=== PATIENT | female | born 1960 | race Caucasian/White ===

== ENCOUNTER 2017-04-09 12:51 | Outpatient (CLI) | payer BC ==
[~2017-04-09] VITALS: Ht 175.3 cm; Wt 153.9 kg
[~2017-04-09 12:51] MED LIST: ATEN50TA PO; BUPR-42 PO; CITA20TA4 PO; ESTR1TAB13 PO; HYDR-623 PO; HYDR25TA4 PO; MULT-974 PO; OMEP20TA2 PO; TURM500C PO
[2017-04-09] MEDS ORDERED: CITA40TA19 PO (13:09)
[2017-04-09] MEDS ORDERED: ESTR1TAB24 PO (13:09)
[2017-04-09] MEDS ORDERED: NORE5TAB12 PO (13:09)
[2017-04-09] MEDS ORDERED: ZOLP5TAB PO (13:09)
[2017-04-09] MEDS ORDERED: CYCL10TA9 PO (13:09)
[2017-04-09 13:13] VITALS: BP 141/81
[2017-04-14] MEDS ORDERED: OXYC-202 PO (11:23)
== END 2017-04-09 13:37 | disposition home or self-care (01) ==
LOC: PREOP 12:51
PROVIDERS: ATTEND Obstetrics & Gynecology
DX: Z01.818 Encounter for other preprocedural examination (principal); Z11.2 Encounter for screening for other bacterial diseases; N95.0 Postmenopausal bleeding
CPT/HCPCS: 87081

== ENCOUNTER 2017-04-14 10:25 | Day surgery (SDC) | payer BC ==
[~2017-04-14] VITALS: Ht 175.3 cm; Wt 153.9 kg
[2017-04-14 10:25] VITALS: BP 122/76
[~2017-04-14 10:25] MED LIST changes: +CITA40TA19 PO; +CYCL10TA9 PO; +ESTR1TAB24 PO; +NORE5TAB12 PO; +ZOLP5TAB PO
[2017-04-14] MEDS ORDERED: proPOfol 200 MG/20 ML (DIPRIVAN) VIAL IV ONE (10:43)
[2017-04-14] MEDS ORDERED: fentaNYL INJECTION 100 MCG/2 ML AMP ONE (10:43)
[2017-04-14] MEDS ORDERED: MIDAZOLAM 2 MG/2 ML (VERSED) VIAL ONE (10:43)
[2017-04-14] MEDS ORDERED: LIDOCAINE PF 2% 10 ML (XYLOCAINE) AMP ONE (10:43)
[2017-04-14] MEDS ORDERED: ONDANSETRON 4 MG/2 ML (SDV) Z0FRAN ONE (10:43)
[2017-04-14] MEDS ORDERED: LACTATED RINGERS 1,000 ML IV ONE (10:43)
[2017-04-14] MEDS ORDERED: SEVOFLURANE (ULTANE) 15 ML INHAL SOLN ONE ×3 (10:45→11:57)
[2017-04-14] MEDS ORDERED: LACTATED RINGERS 1,000 ML IV PRN (10:45)
[2017-04-14] MEDS ORDERED: NS (IVPB) 50 ML ONE (11:02)
[2017-04-14] MEDS ORDERED: ceFAZolin 1,000 MG (ANCEF) VIAL ONE (11:02)
[2017-04-14] MEDS ORDERED: D5 LR IV SOLUTION 1,000 ML IV SCH (11:20)
--- NOTE | 2017-04-14 11:20 | Progress Note-Pre Operative ---
Pre-Operative Progress Note H&P Reviewed The H&P was reviewed, patient examined and no changes noted. Date H&P Reviewed: April 14, 2017 Time H&P Reviewed: 11:19 Pre-Operative Diagnosis: postmenopausal bleeding/dysfunctional uterine bleeding PATITO HUANG MD April 14, 2017 11:20 am
--- NOTE | 2017-04-14 11:20 | Progress Note-Post Operative ---
Post-Operative Progess Note Surgeon (s)/Notching Machine Operator (s) Surgeon PATITO HUANG MD Notching Machine Operator: none Pre-Operative Diagnosis postmenopausal bleeding/dysfunctional uterine bleeding Post-Operative Diagnosis time with pathology pending Procedure & Operative Findings Date of Procedure 04/14/17 Procedure Preformed/Findings hysteroscopy with directed biopsy and D&C Anesthesia Type GETA Estimated Blood Loss Estimated blood loss (mL): minimal Specimens/Packing Specimens Removed directed biopsy and endometrial curettings Packing: none PATITO HUANG MD April 14, 2017 11:20
[2017-04-14] MEDS ORDERED: OXYC-202 PO (11:23)
--- NOTE | 2017-04-14 11:25 | Discharge Instructions ---
Discharge Instructions Discharge Medications New, Converted or Re-Newed RX: RX on Chart Patient Instructions Patient Instructions: as directed Return to The Hospital For: as directed Activity & Diet Activity as Tolerated: Yes Orders-Post D/C & Referrals Follow Up Appt: Call to make follow up appt. for patient in 2 weeks. Activity: Rest for 24 hours, than as tolerated. Diet: As tolerated-Clear Liquids only if nauseated. May shower or tub bathe as desired. No driving for 24 hours, no alcoholic beverages for 24 hours, and nothing per vagina (no tampons, douching, or intercourse) for 2 weeks. Patient to return to the clinic as soon as possible for: Temperature greater than 101F, Severe Pain, Foul discharge from incision or vagina, Excessive Bleeding (more than a period). PATITO HUANG MD April 14, 2017 11:24 am
[2017-04-14] MEDS ORDERED: ESTROGENS CONJ IV 25 MG/5 ML (PREMARIN) VIAL IVP ONE (11:30)
[2017-04-14] MEDS ORDERED: KETOROLAC 30 MG/ML VIAL IVP ONE (11:30)
[2017-04-14] MEDS ORDERED: oxyCODONE/APAP 10/325MG (PERCOCET 10) TABLET PO PRN (11:30)
[2017-04-14] MEDS ORDERED: MEPERIDINE (DEMEROL) INJ 100 MG/ML IM ONE (11:30)
[2017-04-14] MEDS ORDERED: ONDANSETRON 4 MG/2 ML (SDV) Z0FRAN IVP PRN ×2 (11:30→12:15)
[2017-04-14] MEDS ORDERED: PROMETHAZINE INJ 25 MG/ML (PHENERGAN) AMP IM ONE (11:30)
[2017-04-14] MEDS ORDERED: CATHETER FLUSH 10 ML SYR IV PRN (11:45)
[2017-04-14] MEDS ORDERED: ceFAZolin 1 GM/NS 50 ML IVPB IV ONE ×2 (11:45)
[2017-04-14] MEDS ORDERED: MEPERIDINE (DEMEROL) INJ 50 MG/ML IVP PRN (12:15)
[2017-04-14] MEDS ORDERED: ESTROGENS CONJ IV 25 MG/5 ML (PREMARIN) VIAL ONE (12:19)
[2017-04-14] MEDS ORDERED: morphine INJ 10 MG/ML 1ML (SYR OR VIAL) ONE (12:19)
[2017-04-14] MEDS ORDERED: WATER (STERILE) FOR INJECTION 10 ML ONE (12:19)
[2017-04-14] MEDS ORDERED: KETOROLAC 30 MG/ML VIAL ONE (12:19)
[2017-04-14] MEDS: morphine INJ 10 MG/ML 1ML (SYR OR VIAL) IVP PRN ×2 (12:28→12:37)
[2017-04-14 13:05] VITALS: BP 131/70
[2017-04-14 13:35] VITALS: BP 108/58
[2017-04-14 14:05] VITALS: BP 112/76
[2017-04-14 14:50] VITALS: BP 112/76
--- NOTE | 2017-04-15 15:16 | OPERATIVE REPORT ---
DATE OF SERVICE: 04/14/2017 PREOPERATIVE DIAGNOSIS: Postmenopausal bleeding/dysfunction uterine bleeding. POSTOPERATIVE DIAGNOSES: Postmenopausal bleeding/dysfunction uterine bleeding, likely endometrial polyp with endometrial exophytic lesion of undetermined etiology with pathology pending and with cervical polyp. OPERATIVE PROCEDURE: Hysteroscopically directed biopsy as well as D and C with cervical biopsy as well. OPERATIVE DESCRIPTION: With the patient in the supine position under satisfactory general anesthesia she was repositioned in the dorsal lithotomy position in Marty stirrups and prepped and draped in the usual fashion for vaginal surgery. A weighted speculum placed in the posterior fornix. The outer cervix was exposed and grasped anteriorly with single tooth tenaculum. The uterus was sounded to 9 cm with uterine sound. The cervix was then serially dilated with Baltazar dilators to accommodate a hysteroscope which was introduced and using LR as a distending medium, the endometrial cavity was examined. There was a polyp near the lower left side wall of the uterine cavity and then exophytic cobblestone appearing lesion near the right tubal ostium. There was a polyp just inside the opening of the external cervical os. The polyp in the right and the left lower uterine segment was removed under direct vision and sent to pathology for permanent section. The cobblestone area near the right posterior uterine wall with the right tubal ostium was biopsied and several fragments as well. The endometrial cavity was then sharply curettaged in all 4 quadrants to good uterine cry. The hysteroscope was reintroduced, there was no bleeding, there was no remaining abnormal appearing pathology. The hysteroscope was removed and examining the cervix as the hysteroscope was removed, there was a polyp of approximately 4 mm just inside the cervical os. This was biopsied off in several fragments with biopsy forcep and sent to pathology labeled separately as well. Sponge and needle counts were correct on completion of the procedure. ESTIMATE BLOOD LOSS: Less than 30 mL. A total of 1200 mL of LR was used, and about 1100 mL was recovered. There was some spillage on the drapes and on the floor. The patient tolerated the procedure well and was uneventfully awakened from general anesthesia and transferred to the recovery room in stable condition with plans to discharge home PAR. Job ID: [id number] DocumentID: [id number] Dictated Date: 04/14/2017 12:01:49 Fringe Knotter Date: 04/15/2017 08:15:11 Dictated By: PATITO HUANG MD
== END 2017-04-14 14:50 | disposition home or self-care (01) ==
LOC: SDC 10:25
PROVIDERS: ATTEND Obstetrics & Gynecology
DX: N95.0 Postmenopausal bleeding (principal); N93.8 Other specified abnormal uterine and vaginal bleeding; N84.0 Polyp of corpus uteri; N84.1 Polyp of cervix uteri; D25.0 Submucous leiomyoma of uterus

== ENCOUNTER → 2017-06-12 | Outpatient (CLI) | payer BC ==
[~2017-06-12] MED LIST changes: +OXYC-202 PO
[2017-06-12 11:32] LABS: BASOPHILS # (AUTO) 0.1 10^3/uL (0.0-0.1); BASOPHILS % (AUTO) 0 % (0-10); EOSINOPHILS # (AUTO) 0.5 10^3/uL (0.0-0.3); EOSINOPHILS % (AUTO) 3 % (0-10); LYMPHOCYTES % (AUTO) 20 % (12-44); MEAN CORPUSCULAR HEMOGLOBIN 28 PG (25-34); MEAN CORPUSCULAR HGB CONC 32 G/DL (32-36); MEAN CORPUSCULAR VOLUME 86 FL (80-99); MEAN PLATELET VOLUME 9.6 FL (7.4-10.4); MONOCYTES # (AUTO) 0.9 X 10^3 (0.0-1.0); MONOCYTES % (AUTO) 6 % (0-12); NEUTROPHILS # (AUTO) 10.5 X 10^3 (1.8-7.8); NEUTROPHILS % (AUTO) 71 % (42-75); PLATELET COUNT 380 10^3/uL (130-400); RED BLOOD COUNT 5.29 10^6/uL (4.35-5.85); RED CELL DISTRIBUTION WIDTH 15.3 % (10.0-14.5); RETICULOCYTE % 1.66 % (0.50-2.40); WHITE BLOOD COUNT 14.9 10^3/uL (4.3-11.0)
[2017-06-12 11:38] LABS: PATH WILL NEED TO REVIEW SMEAR PATH TO REVIEW
[2017-06-12 12:01] LABS: ANISOCYTOSIS SLIGHT; BAND NEUTROPHILS 0 %; BASOPHILS % (MANUAL) 2 %; EOSINOPHILS % (MANUAL) 4 %; LYMPHOCYTES % (MANUAL) 21 %; NEUTROPHILS % (MANUAL) 69 %
== END ==
LOC: LAB 11:18
PROVIDERS: ATTEND Nurse Practitioner Family
DX: D72.829 Elevated white blood cell count, unspecified (principal)
CPT/HCPCS: 36415; 85007; 85027; 85045

== ENCOUNTER 2017-08-11 08:02 | Outpatient (CLI) | payer BC ==
[~2017-08-11] VITALS: Ht 172.7 cm; Wt 144.7 kg
[2017-08-11 08:12] VITALS: BP 143/74
[2017-08-11] MEDS ORDERED: ALPR0.5T PO (08:18)
[2017-08-11 08:47] LABS: BASOPHILS # (AUTO) 0.1 10^3/uL (0.0-0.1); BASOPHILS % (AUTO) 1 % (0-10); EOSINOPHILS # (AUTO) 0.4 10^3/uL (0.0-0.3); EOSINOPHILS % (AUTO) 3 % (0-10); LYMPHOCYTES # (AUTO) 2.4 X 10^3 (1.0-4.0); LYMPHOCYTES % (AUTO) 21 % (12-44); MEAN CORPUSCULAR HEMOGLOBIN 28 PG (25-34); MEAN CORPUSCULAR HGB CONC 33 G/DL (32-36); MEAN CORPUSCULAR VOLUME 86 FL (80-99); MEAN PLATELET VOLUME 9.5 FL (7.4-10.4); MONOCYTES # (AUTO) 0.9 X 10^3 (0.0-1.0); MONOCYTES % (AUTO) 7 % (0-12); NEUTROPHILS # (AUTO) 7.8 X 10^3 (1.8-7.8); NEUTROPHILS % (AUTO) 68 % (42-75); PLATELET COUNT 392 10^3/uL (130-400); RED BLOOD COUNT 5.26 10^6/uL (4.35-5.85); RED CELL DISTRIBUTION WIDTH 14.9 % (10.0-14.5); WHITE BLOOD COUNT 11.6 10^3/uL (4.3-11.0)
[2017-08-11 09:08] LABS: ANION GAP 12 MMOL/L (5-14); BLOOD UREA NITROGEN 11 MG/DL (7-18); BUN/CREATININE RATIO 16; CALCIUM 9.5 MG/DL (8.5-10.1); CARBON DIOXIDE 22 MMOL/L (21-32); CHLORIDE 104 MMOL/L (98-107); GFR ESTIMATED > 60; GLUCOSE 122 MG/DL (70-105); POTASSIUM 3.7 MMOL/L (3.6-5.0); SODIUM 138 MMOL/L (135-145)
[2017-08-11] MEDS ORDERED: HYDR25TA4 PO (09:49)
[2017-08-11] MEDS ORDERED: ATEN50TA PO (09:49)
[2017-08-11] MEDS ORDERED: OMEP20TA7 PO (09:49)
[2017-08-11] MEDS ORDERED: BUPR150T7 PO (09:49)
== END 2017-08-11 08:35 | disposition home or self-care (01) ==
LOC: PREOP 08:02
PROVIDERS: ATTEND Obstetrics & Gynecology
DX: Z01.812 Encounter for preprocedural laboratory examination (principal); N92.0 Excessive and frequent menstruation with regular cycle; N93.8 Other specified abnormal uterine and vaginal bleeding; D64.9 Anemia, unspecified
CPT/HCPCS: 36415; 80048; 85025; 86850; 86900; 86901; 87081

== ENCOUNTER 2017-08-17 11:27 | Day surgery (SDC) | payer BC ==
[~2017-08-17] VITALS: Ht 172.7 cm; Wt 144.7 kg
[~2017-08-17 11:27] MED LIST changes: +ALPR0.5T PO; +BUPR150T7 PO; +OMEP20TA7 PO
[2017-08-17] MEDS ORDERED: BUP/EPI 0.5% 1:200,000 (MARCAINE) 10ML VIAL IJ ONE (11:46)
[2017-08-17] MEDS ORDERED: LIDOCAINE PF 2% 5 ML (XYLOCAINE) VIAL ONE (11:50)
[2017-08-17] MEDS ORDERED: ROCURONIUM 50 MG/5 ML (ZEMURON) VIAL IV ONE (11:50)
[2017-08-17] MEDS ORDERED: ONDANSETRON 4 MG/2 ML (SDV) Z0FRAN ONE (11:50)
[2017-08-17] MEDS ORDERED: proPOfol 200 MG/20 ML (DIPRIVAN) VIAL IV ONE (11:50)
[2017-08-17] MEDS ORDERED: fentaNYL INJECTION 100 MCG/2 ML AMP ONE (11:50)
[2017-08-17] MEDS ORDERED: SUCCINYLCHOLINE INJ 100 MG/5 ML SYR ONE (11:50)
[2017-08-17] MEDS ORDERED: DEXAMETHASONE 10 MG/ML (DECADRON) 1 ML VIAL ONE (11:51)
[2017-08-17] MEDS ORDERED: MIDAZOLAM 2 MG/2 ML (VERSED) VIAL ONE (11:51)
[2017-08-17] MEDS ORDERED: ceFAZolin 1 GM/NS 50 ML IVPB IV ONE ×2 (12:00)
[2017-08-17] MEDS ORDERED: FAMOTIDINE 20MG/2ML IV (PEPCID) IV ONE (12:00)
[2017-08-17] MEDS: LACTATED RINGERS 1,000 ML IV PRN ×2 (12:11→13:40)
--- NOTE | 2017-08-17 12:11 | Progress Note-Pre Operative ---
Pre-Operative Progress Note H&P Reviewed The H&P was reviewed, patient examined and no changes noted. Date Seen by Provider: Aug 17, 2017 Time Seen by Provider: 12:10 Date H&P Reviewed: Aug 17, 2017 Time H&P Reviewed: 12:10 Pre-Operative Diagnosis: DUB/menorrhagia PATITO HUANG MD Aug 17, 2017 12:11 pm
--- NOTE | 2017-08-17 12:11 | Progress Note-Post Operative ---
Post-Operative Progess Note Surgeon (s)/Head Start Director (s) Surgeon PATITO HUANG MD Head Start Director: Estephania Babb Pre-Operative Diagnosis DUB/menorrhagia Post-Operative Diagnosis same with pathology pending Procedure & Operative Findings Date of Procedure 08/17/17 Procedure Performed/Findings total laparoscopic hysterectomy with bilateral salpingo-oophorectomy Anesthesia Type GETA Estimated Blood Loss Estimated blood loss (mL): minimal Specimens/Packing Specimens Removed uterus tubes and ovaries Packing: none PATITO HUANG MD Aug 17, 2017 12:11
[2017-08-17] MEDS ORDERED: oxyCODONE/APAP 10/325MG (PERCOCET 10) TABLET PO PRN (12:15)
[2017-08-17] MEDS ORDERED: PATIENT MAY USE OWN MEDS, ALL MC SCH (12:15)
[2017-08-17] MEDS ORDERED: fentaNYL INJECTION 100 MCG/2 ML AMP IVP PRN (12:15)
[2017-08-17] MEDS ORDERED: WATER (STERILE) FOR INJ 10 ML BTL INJ ONE (12:15)
[2017-08-17] MEDS ORDERED: ALPRAZolam 0.5 MG (XANAX) TAB PO PRN (12:15)
[2017-08-17] MEDS ORDERED: ONDANSETRON 4 MG/2 ML (SDV) Z0FRAN IVP PRN ×2 (12:15→14:45)
[2017-08-17] MEDS ORDERED: CYCLOBENZAPRINE 10 MG (FLEXERIL) TAB PO PRN (12:15)
[2017-08-17] MEDS ORDERED: ESTROGENS CONJ IV 25 MG/5 ML (PREMARIN) VIAL IVP ONE (12:15)
[2017-08-17 12:39] VITALS: BP 141/79
[2017-08-17] MEDS ORDERED: FUROSEMIDE 40 MG/4 ML INJ (LASIX) ONE (13:36)
[2017-08-17] MEDS ORDERED: ESTROGENS CONJ IV 25 MG/5 ML (PREMARIN) VIAL ONE (13:54)
[2017-08-17] MEDS ORDERED: WATER (STERILE) FOR INJECTION 10 ML ONE (13:54)
[2017-08-17] MEDS ORDERED: LACTATED RINGERS 1,000 ML IV ONE (14:07)
[2017-08-17] MEDS ORDERED: SEVOFLURANE (ULTANE) 15 ML INHAL SOLN ONE ×6 (14:07)
[2017-08-17] MEDS ORDERED: NEOSTIGMINE (BLOXIVERZ ) 1 MG/1ML 10 ML VIAL ONE (14:17)
[2017-08-17] MEDS ORDERED: GLYCOPYRROLATE 0.2 MG/ML (ROBINUL) 2 ML VIAL ONE (14:17)
[2017-08-17] MEDS ORDERED: morphine INJ 10 MG/ML 1ML (SYR OR VIAL) ONE (14:33)
[2017-08-17] MEDS: morphine INJ 10 MG/ML 1ML (SYR OR VIAL) IVP PRN ×2 (14:44→14:52)
[2017-08-17] MEDS ORDERED: HYDROmorphone (DILAUDID) 2 MG/ML VIAL IVP PRN (14:45)
[2017-08-17] MEDS ORDERED: MEPERIDINE (DEMEROL) INJ 50 MG/ML IVP PRN (14:45)
[2017-08-17] MEDS: KETOROLAC 30 MG/ML VIAL IVP SCH ×2 (14:46→20:48)
[2017-08-17] MEDS ORDERED: HYDROmorphone (DILAUDID) 2 MG/ML VIAL ONE (14:55)
[2017-08-17 16:00] VITALS: BP 132/67
[2017-08-17] MEDS: D5 LR IV SOLUTION 1,000 ML IV SCH (16:20)
[2017-08-17] MEDS ORDERED: oxyCODONE/APAP 10/325MG (PERCOCET 10) TABLET PO ONE (16:33)
[2017-08-17] MEDS ORDERED: ZOLPIDEM 5 MG (AMBIEN) TAB PO PRN (17:15)
[2017-08-17 20:48] VITALS: BP 121/72
[2017-08-17] MEDS: oxyCODONE/APAP 10/325MG (PERCOCET 10) TABLET PO PRN (20:48)
[2017-08-18 00:14] VITALS: BP 122/68
[2017-08-18] MEDS: D5 LR IV SOLUTION 1,000 ML IV SCH (00:14)
[2017-08-18] MEDS: KETOROLAC 30 MG/ML VIAL IVP SCH (02:03)
[2017-08-18] MEDS: oxyCODONE/APAP 10/325MG (PERCOCET 10) TABLET PO PRN ×2 (02:03→08:00)
[2017-08-18 04:30] VITALS: BP 106/68
--- NOTE | 2017-08-18 04:33 | OPERATIVE REPORT ---
DATE OF SERVICE: 08/17/2017 SURGEON: Jemal Magaña MD PREOPERATIVE DIAGNOSES: 1. Dysfunctional uterine bleeding. 2. Menorrhagia. POSTOPERATIVE DIAGNOSES: 1. Dysfunctional uterine bleeding. 2. Menorrhagia. 3. Uterine megaly. OPERATIVE PROCEDURE: Total laparoscopic hysterectomy with bilateral salpingo-oophorectomy. OPERATIVE DESCRIPTION: With the patient in the supine position under satisfactory general anesthesia, she was repositioned in the dorsal lithotomy position in the [facility], then prepped and draped in the usual fashion for abdominal and vaginal surgery. The urinary bladder was drained via a Galeas catheter to dependent drainage. A weighted speculum was placed in the posterior fornix of the vagina, the cervix was exposed and grasped anteriorly with a single-tooth tenaculum. The uterus was sounded to 13 cm with the uterine sound. The cervix was then serially dilated with Baltazar dilators to accommodate a Gina II manipulator which was placed and the bulb filled with 4 mL of water. Sutures of #1 Vicryl were placed at the 10, 9 and 5 position in the cervix to affix the uterus to the manipulator. The manipulator used a 6 mm right cm probe and a 30 mm colpotomy ring. The patient brought in low dorsal lithotomy position with the abdomen exposed. A 12 mm incision was made 12 cm superior to the umbilicus and a stab wound at Wen's point. The Veress needle was placed through the stab wound at Wen's point and the abdomen insufflated with 2.4 liters of carbon dioxide then the Veress needle was removed and a 12 mm port was placed through the umbilical incision. The laparoscope was introduced and it was evident that the port was barely long enough to allow access. The camera was removed. An exchange probe was placed through the initial port which was then removed and then a long port placed over the exchange manipulator to allow placement into the abdominal cavity which was done easily. The scope was reintroduced, the abdominal wall transilluminated and 8 ports were placed approximately 9-10 cm lateral from the umbilicus, half way between the umbilicus and the position of the midline port. A 4th port of 5 mm was placed in the right upper quadrant for additional retraction and access. The patient placed in Trendelenburg allowing the bowel to spill up out of the pelvis. The instruments were placed using a vessel sealer on the right and a bipolar fenestrated grasper on the left. The pelvis was first examined. Both ovaries appeared atretic. The fallopian tubes were normal. The uterus was large, bulky and mottled, consistent with adenomyosis, but also had some obvious fibroids. Both ureters were seen to peristalse although it was somewhat difficult at times because of the patient's body habitus and the adipose tissue and the retroperitoneal cushioning, the visualization of the ureters. The laparoscope was rotated. The appendix was not identifiable. The laparoscope was brought back to the pelvis. The right fallopian tube and ovary were grasped and elevated. The mesovarian was clamped, cauterized and divided stepwise across to the round ligament and then across the round ligament, across the broad ligament and down onto the cardinal ligament on the right allowing for removal of the tube and ovary eventually with the uterus. The same procedure was performed on the left allowing for removal of that adnexa as well. Both ureters were seen to peristalse, again with some difficulty because very little of the ureters were visible. The anterior lower uterine segment of the peritoneum was now divided after replacing the vessel sealer with a monopolar scissor. The bladder was carefully dissected down of the lower uterine segment, colpotomy incision was started at the 12 o'clock position and continued circumferentially in both directions, eventually working completely around, exposing the entire colpotomy ring which then allowed for removal of the uterus with the tubes and ovaries still attached, through the vagina. Hemostasis was satisfactory at that point. The operative instruments were changed to a Cobra grasper on the left and a [place] needle road oiling truck driver on the right, using a V-Loc barbed suture, the vaginal cuff was closed, starting on the right and including closure of the terminus of the uterine vessels where they had been cauterized and divided to ensure securement of those vessels and to prevent potential for bleeding later. That suture was used to come just about to the midline and then a 2nd suture was used to start on the left. After 2 stitches, that suture was inadvertently cut, a 3rd suture was then placed and continued on the left to again secure the uterine vessel pedicles on the left and close the balance of the vaginal cuff as well as bringing the peritoneum down onto the vaginal cuff. The pelvis was irrigated and examined for hemostasis. That being complete, the procedure was terminated. The operative instruments were removed under direct vision, as were the ports. The patient was brought out of Trendelenburg. The bowel spilled back into the pelvis. The insufflating gas was evacuated in the process of removing the ports. All 4 port sites were closed with bulmaro. The fascia at the supraumbilical port was closed with [id number] suture of 2-0 Vicryl. Cystoscopy was now performed using sterile saline as a distending medium and the 30 degree cystoscope, both ureteral orifices were easily identified and both were seen to efflux generously. The patient had been given a 20 mg dose of Lasix just as the vaginal cuff was starting to be closed. The vagina was examined for intact closure of the vaginal cuff which was complete and there was no bleeding. The patient tolerated the procedure well now and was uneventfully awakened from her general anesthesia and transferred to the recovery room in stable condition. Sponge and needle counts were correct at the end of the procedure. Estimated blood loss for the procedure was less than 50 mL. The patient tolerated the procedure very well. Job ID: [id number] DocumentID: [id number] Dictated Date: 08/17/2017 14:24:29 Motor And Generator Brush Maker Date: 08/18/2017 04:32:57 Dictated By: JEMAL MAGAÑA MD
[2017-08-18] MEDS ORDERED: PANTOPRAZOLE 20 MG TABLET (PROTONIX) PO SCH (07:00)
[2017-08-18 07:40] VITALS: BP 110/67
--- NOTE | 2017-08-18 07:48 | Progress Note-Standard ---
Standard Progress Note Progress Notes/Assess & Plan Date Seen by Provider: Aug 18, 2017 Time Seen by Provider: 07:47 Progress/Assessment & Plan this patient without complaint. She is ablating, tolerating by mouth well, has good pain control. Galeas catheter was removed 6 a.m. she has not voided yet. Vital Signs Date Time Temp Pulse Resp B/P (MAP) Pulse Ox O2 Delivery O2 Flow Rate FiO2 08/18/17 04:30 98.0 63 18 106/68 98 Room Air 08/18/17 00:14 97.3 75 20 122/68 94 Room Air 08/17/17 20:48 97.4 81 20 121/72 96 Room Air 08/17/17 16:00 97.9 79 20 132/67 98 Room Air 08/17/17 12:39 97.3 71 16 141/79 94 Room Air Vital signs are stable. Patient afebrile. The abdomen is benign. Extreme show no clubbing cyanosis. There is no Homans sign. Assessment and plan Postoperative day number 1 doing well. Plan is for discharge home with follow-up in clinic Final Diagnosis DU be/menorrhagia PATITO HUANG MD Aug 18, 2017 7:48 am
[2017-08-18] MEDS ORDERED: IBUPROFEN 800 MG (MOTRIN) TAB PO ONE (07:50)
[2017-08-18] MEDS ORDERED: OXYC-465 PO (07:50)
[2017-08-18] MEDS ORDERED: DOCU100C37 PO (07:50)
[2017-08-18] MEDS ORDERED: IBUP-1780 PO (07:50)
[2017-08-18] MEDS ORDERED: Patient May Use Own Meds, All MC (07:50)
--- NOTE | 2017-08-18 07:51 | Discharge Instructions ---
Discharge Instructions Discharge Medications New, Converted or Re-Newed RX: RX on Chart Patient Instructions Patient Instructions: as directed Return to The Hospital For: as directed Activity & Diet Discharge Diet: No Restrictions Activity as Tolerated: No Orders-Post D/C & Referrals Follow Up Appt: return to clinic on Thursday, August 21, 2017 at 930 a.m. for staple removal Call to make follow up appt. for patient in 4 weeks. Activity: Rest for 24 hours, than as tolerated. Wound Care: May remove Band-Aid tomorrow. Replace as desired. Keep incisions clean and dry. Wash daily with soap and water. Please call in RX to patient pharmacy. Diet: As tolerated-Clear Liquids only if nauseated. shower or tub bathe as desired. No driving for 24 hours, no alcoholic beverages for 24 hours, and nothing per vagina (no tampons, douching, or intercourse) for 8 weeks. Patient to return to the clinic as soon as possible for: Temperature greater than 101F, Severe Pain, Foul discharge from incision or vagina, Excessive Bleeding (more than a period). PATITO HUANG MD Aug 18, 2017 7:51 am
[2017-08-18] MEDS ORDERED: ATENOLOL 50 MG (TENORMIN) TAB PO SCH (09:00)
[2017-08-18] MEDS ORDERED: DOCUSATE SODIUM 100 MG (COLACE) CAP PO SCH (09:00)
[2017-08-18] MEDS ORDERED: HYDROCHLOROTHIAZIDE 25 MG (HCTZ) TAB PO SCH (09:00)
[2017-08-18] MEDS ORDERED: buPROPion XL 150 MG (WELLBUTRIN XL) NON-FORM PO SCH (09:00)
[2017-08-18] MEDS ORDERED: CITALOPRAM 40 MG PO SCH (09:00)
[2017-08-18] MEDS ORDERED: ESTRADIOL 1 MG TAB (ESTRACE) PO SCH ×2 (09:00)
[2017-08-18 11:50] VITALS: BP 110/67
[2017-08-18] MEDS ORDERED: IBUPROFEN 800 MG (MOTRIN) TAB PO SCH (18:00)
== END 2017-08-18 11:50 | disposition home or self-care (01) ==
LOC: SDC 11:27 → EDSTATUS 13:00 → WS 15:56 → SDC 08-18 11:50
PROVIDERS: ATTEND Obstetrics & Gynecology
DX: D25.2 Subserosal leiomyoma of uterus (principal); D25.1 Intramural leiomyoma of uterus; N72 Inflammatory disease of cervix uteri; N83.8 Other noninflammatory disorders of ovary, fallopian tube and broad ligament; I10 Essential (primary) hypertension; G43.909 Migraine, unspecified, not intractable, without status migrainosus; F41.9 Anxiety disorder, unspecified; F32.9 Major depressive disorder, single episode, unspecified; K21.9 Gastro-esophageal reflux disease without esophagitis; E11.9 Type 2 diabetes mellitus without complications; E66.01 Morbid (severe) obesity due to excess calories; Z68.42 Body mass index [BMI] 45.0-49.9, adult; Z79.899 Other long term (current) drug therapy
CPT/HCPCS: 88307; 94664

== ENCOUNTER 2017-10-25 09:01 | Emergency (ER) | payer BC ==
[~2017-10-25] VITALS: Ht 172.7 cm; Wt 93.0 kg
[~2017-10-25 09:01] MED LIST changes: +DOCU100C37 PO; +IBUP-1780 PO; +OXYC-465 PO; +Patient May Use Own Meds, All MC
[2017-10-25] MEDS ORDERED: RX-GENTAMICIN 0.3% OP OINT 3.5 GM TUBE ONE (10:50)
--- NOTE | 2017-10-25 10:53 | ED EENT ---
History of Present Illness General Chief Complaint: Eye Problems Stated Complaint: R EYE SWELLING/REDNESS Nursing Triage Note: PT CO OF R EYE UPPER LID BEING REDDEND AND PAINFUL. PT STATES IS SUPPOSE TO HAVE FOOT SURG AND WANTS TO GET IT TAKEN CARE OF Source: patient Exam Limitations: no limitations History of Present Illness Time seen by provider: 10:10 Initial Comments The patient is a 57-year-old white female who reports that she began to have pain in her right eyelid last night. This morning she sees a reddened area is quite tender. There has been no colored exudate or pain to the orbit. She has not been exposed to small children. She is to have foot surgery this week and would like to make sure that this does not derail the project Timing/Duration: abrupt Location: eye (R) Prearrival Treatment: no prearrival treatment Allergies and Home Medications Allergies Coded Allergies: No Known Allergies (Unverified Allergy, Unknown, 04/09/17) Home Medications Alprazolam 0.5 Mg Tablet, 0.25-0.5 MG PO Q6H PRN for ANXIETY, (Reported) TAKE 1/2 TO 1 (.5MG) TAB Atenolol 50 Mg Tablet, 50 MG PO DAILY, (Reported) Bupropion HCl 150 Mg Tab.er.24h, 150 MG PO DAILY, (Reported) Citalopram Hydrobromide 40 Mg Tablet, 40 MG PO DAILY, (Reported) Cyclobenzaprine HCl 10 Mg Tablet, 10 MG PO Q6H PRN for MUSCLE SPASMS, (Reported) Docusate Sodium 100 Mg Capsule, 100 MG PO BID, #60 Prescribed by: PATITO CALI on 08/18/17 0750 Estradiol 1 Mg Tablet, 1 MG PO DAILY, (Reported) Hydrochlorothiazide 25 Mg Tablet, 25 MG PO DAILY, (Reported) Ibuprofen 800 Mg Tablet, 800 MG PO Q6HR, #30 Prescribed by: PATITO CALI on 08/18/17 0750 Omeprazole 20 Mg Tablet.dr, 20 MG PO HS, (Reported) Oxycodone HCl/Acetaminophen 1 Each Tablet, 1-2 TAB PO Q4H PRN for PAIN-MODERATE TO SEVERE, #60 Prescribed by: PATITO CALI on 08/18/17 0750 Zolpidem Tartrate 5 Mg Tablet, 5 MG PO HS PRN for INSOMNIA, (Reported) [Patient May Use Own Meds, All] 1 EACH MISC, 0 EACH MC UD, #1 Prescribed by: PATITO CALI on 08/18/17 0750 Review of Systems Constitutional: see HPI Eyes: See HPI, Inflammation Ears: No Symptoms Reported Nose: no symptoms reported Mouth: no symptoms reported Throat: no symptoms reported Respiratory: no symptoms reported Cardiovascular: no symptoms reported Gastrointestinal: no symptoms reported Musculoskeletal: no symptoms reported Skin: no symptoms reported Neurological: No Symptoms Reported Hematologic/Lymphatic: No Symptoms Reported Immunological/Allergic: no symptoms reported Past Zznnogf-Hopajm-Huublc Hx Patient Social History Alcohol Use: Occasionally Uses Number of Drinks Today: GG Alcohol Beverage of Choice: Whiskey Recreational Drug Use: No Smoking Status: Former Smoker Type Used: Cigarettes Former Smoker, Quit: April 09, 2001 Recent Foreign Travel: No Contact w/Someone Who Travel: No Recent Infectious Disease Expo: No Recent Hopitalizations: No Physical Abuse: No Sexual Abuse: No Immunizations Up To Date Tetanus Booster (TDap): Unknown Date of Influenza Vaccine: Sep 08, 2016 Seasonal Allergies Seasonal Allergies: Yes Surgeries History of Surgeries: Yes (ROTATOR CUFF REPAIR, RIGHT ACHILLES TENDON, D&C) Surgeries: Gallbladder, Hysterectomy, Tonsillectomy Respiratory History of Respiratory Disorde: No Cardiovascular History of Cardiac Disorders: Yes Cardiac Disorders: Hypertension Neurological History of Neurological Disord: Yes Neurological Disorders: Headaches /Migraines Reproductive System Hx Reproductive Disorders: Yes (PMB, DUB) Sexually Transmitted Disease: No HIV/AIDS: No Female Reproductive Disorders: Menstrual Problems Genitourinary Genitourinary Disorders: UTI-Chronic Gastrointestinal History of Gastrointestinal Di: Yes Gastrointestinal Disorders: Ulcer Musculoskeletal History of Musculoskeletal Dis: Yes Musculoskeletal Disorders: Arthritis, Chronic Back Pain Endocrine History of Endocrine Disorders: Yes (PRE/BORDERLINE DIABETES) HEENT Loss of Vision: Bilateral Hearing Impairment: Denies Cancer History of Cancer: No Psychosocial History of Psychiatric Problem: Yes Behavioral Health Disorders: Anxiety Suicide Risk Score: 0 Integumentary History of Skin or Integumenta: Yes Skin/Integumentary Disorders: Eczema Blood Transfusions History of Blood Disorders: No Adverse Reaction to a Blood Tr: No (N/A) Family Medical History Family Medial History: Cardiovascular disease 19 MOTHER Diabetes mellitus 19 FATHER FH: leukemia 19 MOTHER Hypertension 19 FATHER Respiratory disorder 19 MOTHER (COPD) Physical Exam Vital Signs Vital Sign - Last 12Hours 10/25/17 09:10 Temp 97.7 Pulse 76 Resp 18 B/P (MAP) 140/83 Pulse Ox 97 General Appearance: WD/WN, no apparent distress, mild distress, moderate distress, severe distress, cachetic Eyes: right eye lid inflammation (a red papule formation admitted upper lid and lash line consistent with early stye formation) Ears: bilateral ear auricle normal, bilateral ear canal normal Nose: normal inspection Mouth/Throat: normal mouth inspection, pharynx normal, dental tenderness, excessive drooling, foreign body, mandibular swelling Neck: non-tender, full range of motion, supple, normal inspection Cardiovascular: normal peripheral pulses, regular rate, rhythm, no edema, no gallop, no JVD, no murmur Respiratory: chest non-tender, lungs clear, normal breath sounds, no respiratory distress, no accessory muscle use Progress/Results/Core Measures Results/Orders Vital Signs/I&O Vital Sign - Last 12Hours 10/25/17 09:10 Temp 97.7 Pulse 76 Resp 18 B/P (MAP) 140/83 Pulse Ox 97 Blood Pressure Mean: 102 Departure Impression Impression: Primary Impression: lev Disposition: 01 HOME, SELF-CARE Condition: Stable/Unchanged Departure-Patient Inst. Decision time for Depature: 10:53 Referrals: MINI BLANKENSHIP MD (PCP/Family) Primary Care Physician Patient Instructions: Lev (Miguel Ángeldeolum) Add. Discharge Instructions: All discharge instructions reviewed with patient and/or family. Voiced understanding. Use hot compress (washcloth) to right eye every 3-4 hours. Apply Gentek ointment as demonstrated every 4 hours while awake. MARICARMEN TYSON MD Oct 25, 2017 10:53
[2017-10-25] MEDS ORDERED: GENTAMICIN 0.3% OPHTH OINT 3.5 GM TUBE OP SCH (11:00)
[2017-10-25 11:18] VITALS: BP 147/85
== END 2017-10-25 11:18 | disposition home or self-care (01) ==
LOC: EDUNIT# 09:01 → ER 09:02
DX: H00.011 Hordeolum externum right upper eyelid (principal); F41.9 Anxiety disorder, unspecified; G43.909 Migraine, unspecified, not intractable, without status migrainosus; Z87.11 Personal history of peptic ulcer disease; Z90.710 Acquired absence of both cervix and uterus; Z90.89 Acquired absence of other organs; Z87.891 Personal history of nicotine dependence
CPT/HCPCS: 99283

== ENCOUNTER 2018-04-18 16:33 | Emergency (ER) | payer BC ==
[~2018-04-18] VITALS: Ht 172.7 cm; Wt 93.0 kg
--- NOTE | 2018-04-18 17:48 | ED Neck-Back Pain/Injury ---
General Chief Complaint: Head/Cervical Problems Stated Complaint: NECK PAIN Nursing Triage Note: C/O neck pain starting night- no injury. severly limited rom Nursing Sepsis Screen: No Definite Risk Source of Information: Patient Exam Limitations: No Limitations History of Present Illness Date Seen by Provider: April 18, 2018 Time Seen by Provider: 17:42 Initial Comments The patient is a 58-year-old white female who presents with a chief complaint of neck pain with pain radiating towards the shoulder. She states that this began night. There was no apparent or recent injury. She has noted some tingling in her right hand however has had carpal tunnel problems and surgery before. She does not report any weakness. She has not been able to lie down to sleep that has had to sit up in a chair. Timing/Duration: 3-4 Days Severity: Moderate Allergies and Home Medications Allergies Coded Allergies: No Known Allergies (Unverified Allergy, Unknown, 04/18/18) Home Medications Alprazolam 0.5 Mg Tablet, 0.25-0.5 MG PO Q6H PRN for ANXIETY, (Reported) TAKE 1/2 TO 1 (.5MG) TAB Atenolol 50 Mg Tablet, 50 MG PO DAILY, (Reported) Bupropion HCl 150 Mg Tab.er.24h, 150 MG PO DAILY, (Reported) Citalopram Hydrobromide 40 Mg Tablet, 40 MG PO DAILY, (Reported) Cyclobenzaprine HCl 10 Mg Tablet, 10 MG PO Q6H PRN for MUSCLE SPASMS, (Reported) Docusate Sodium 100 Mg Capsule, 100 MG PO BID Prescribed by: PATITO CALI on 08/18/17 0750 Estradiol 1 Mg Tablet, 1 MG PO DAILY, (Reported) Hydrochlorothiazide 25 Mg Tablet, 25 MG PO DAILY, (Reported) Ibuprofen 800 Mg Tablet, 800 MG PO Q6HR Prescribed by: PATITO CALI on 08/18/17 075 Omeprazole 20 Mg Tablet.dr, 20 MG PO HS, (Reported) Oxycodone HCl/Acetaminophen 1 Each Tablet, 1-2 TAB PO Q4H PRN for PAIN-MODERATE TO SEVERE Prescribed by: PATITO CALI on 08/18/17 0750 Tramadol HCl 50 Mg Tablet, 50 MG PO 4 times a day Prescribed by: MARICARMEN TYSON on 04/18/18 1751 Zolpidem Tartrate 5 Mg Tablet, 5 MG PO HS PRN for INSOMNIA, (Reported) [Patient May Use Own Meds, All] 1 EACH MISC, 0 EACH MC UD Prescribed by: PATITO CALI on 08/18/17 0750 Patient Home Medication List Home Medication List Reviewed: Yes Constitutional: see HPI EENTM: no symptoms reported Respiratory: no symptoms reported Cardiovascular: no symptoms reported Gastrointestinal: no symptoms reported Musculoskeletal: no symptoms reported Skin: no symptoms reported Pain to the neck especially on the right. Very limited range of motion. Some tingling down the right arm Past [id number] Hx Patient Social History Alcohol Use: Occasionally Uses Number of Drinks Today: GG Alcohol Beverage of Choice: Whiskey Recreational Drug Use: No Smoking Status: Former Smoker Type Used: Cigarettes Former Smoker, Quit: April 09, 2001 Recent Foreign Travel: No Contact w/Someone Who Travel: No Recent Infectious Disease Expo: No Recent Hopitalizations: No Physical Abuse: No Sexual Abuse: No Mistreated: No Fear: No Immunizations Up To Date Tetanus Booster (TDap): Unknown Date of Influenza Vaccine: Sep 08, 2016 Seasonal Allergies Seasonal Allergies: Yes Past Medical History Surgeries: Yes (ROTATOR CUFF REPAIR, Rt/lt ACHILLES TENDON, D&C) Gallbladder, Hysterectomy, Orthopedic, Tonsillectomy Respiratory: No Cardiac: Yes Hypertension Neurological: Yes Headaches /Migraines Reproductive Disorders: Yes (PMB, DUB) Female Reproductive Disorders: Menstrual Problems Sexually Transmitted Disease: No HIV/AIDS: No UTI-Chronic Gastrointestinal: Yes Ulcer Musculoskeletal: Yes Arthritis, Chronic Back Pain Endocrine: Yes Diabetes, Non-Insulin dep Loss of Vision: Bilateral Hearing Impairment: Denies Cancer: No Psychosocial: Yes Anxiety Nursing Suicide Risk Score: 0 Integumentary: Yes Eczema Blood Disorders: No Adverse Reaction/Blood Tranf: No (N/A) Family Medical History Cardiovascular disease 19 MOTHER Diabetes mellitus 19 FATHER FH: leukemia 19 MOTHER Hypertension 19 FATHER Respiratory disorder 19 MOTHER (COPD) Physical Exam Vital Signs Vital Signs - First Documented 04/18/18 17:06 Pulse 78 Resp 18 B/P (MAP) 133/77 (95) Pulse Ox 96 Capillary Refill : Less Than 3 Seconds General Appearance: Mild Distress, Moderate Distress HEENT: Normal ENT Inspection Neck: Normal Inspection Cardiovascular: Regular Rate, Rhythm, No Edema, No Gallop, No JVD, No Murmur, Normal Peripheral Pulses Respiratory: Chest Non Tender, Lungs Clear, Normal Breath Sounds, No Accessory Muscle Use, No Respiratory Distress, Accessory Muscle Use Neurologic/Psychiatric: Alert, Oriented x3 Comments There is pain to palpation of the paracervical muscles. There is pain to passive range of motion. Candy Decorator is 2+ and equal. Biceps and triceps are intact. Progress/Results/Core Measures Results/Orders Vital Signs/I&O 04/18/18 17:06 Pulse 78 Resp 18 B/P (MAP) 133/77 (95) Pulse Ox 96 Blood Pressure Mean: 95 Departure Impression Primary Impression: neck pain/cervical disc. Disposition: HOME, SELF-CARE Condition: Stable/Unchanged Departure-Patient Inst. Decision time for Depature: 17:49 Referrals: MINI BLANKENSHIP MD (PCP/Family) Primary Care Physician Add. Discharge Instructions: All discharge instructions reviewed with patient and/or family. Voiced understanding. Try heat to the neck. Use tramadol for pain Contact your insider at [facility] for the possible cervical MRI. Scripts Tramadol HCl (Tramadol HCl) 50 Mg Tablet 50 MG PO 4 times a day, #20 TAB Prov: MARICARMEN TYSON MD 04/18/18 MARICARMEN TYSON MD April 18, 2018 17:48
[2018-04-18] MEDS ORDERED: TRAM50TA2 PO (17:51)
[2018-04-18] MEDS ORDERED: RX-TRAMADOL 50 MG (ULTRAM) TAB PPK#4 PO ONE (18:06)
[2018-04-18 18:15] VITALS: BP 141/53
[2018-04-18] MEDS ORDERED: HYDROcodone/APAP 10 MG/325 MG (LORTAB) TAB PO ONE (18:15)
== END 2018-04-18 18:14 | disposition home or self-care (01) ==
LOC: EDUNIT# 16:33 → ER 16:34
DX: M54.2 Cervicalgia (principal); I10 Essential (primary) hypertension; E11.9 Type 2 diabetes mellitus without complications; F41.9 Anxiety disorder, unspecified; G43.909 Migraine, unspecified, not intractable, without status migrainosus; Z87.440 Personal history of urinary (tract) infections; Z82.49 Family history of ischemic heart disease and other diseases of the circulatory system; Z80.6 Family history of leukemia; Z87.19 Personal history of other diseases of the digestive system; Z87.891 Personal history of nicotine dependence; Z90.710 Acquired absence of both cervix and uterus; Z90.89 Acquired absence of other organs
CPT/HCPCS: 99283

== ENCOUNTER → 2019-10-17 | Outpatient (CLI) | payer BC ==
[~2019-10-17] MED LIST changes: -OXYC-202 PO; +OXYC1TAB12 PO; +TRAM50TA2 PO
--- NOTE | 2019-10-17 13:08 | Diagnostic Imaging Report ---
INDICATION: Routine screening. COMPARISON: Comparison is made with prior mammograms of 11/12/2016 and 02/23/2015. 2-D and 3-D bilateral screening mammography was performed. The current study was also evaluated with a Computer Aided Detection (CAD) system. 3-D tomosynthesis was also performed and reviewed. FINDINGS: Scattered fibroglandular densities are identified bilaterally. There are benign calcifications. A slightly nodular density in the outer right breast anterior depth is noted. Additional views are recommended. No malignant-appearing microcalcifications are seen. Axillae are unremarkable. IMPRESSION: Right breast nodular density. Additional views are recommended for further evaluation. ACR BI-RADS Category 0: Incomplete. (Needs additional imaging evaluation). Result letter will be mailed to the patient. Note: At least 10% of breast cancer is not imaged by mammography. Dictated by: Dictated on workstation # [id number]
== END ==
LOC: RAD 11:15
PROVIDERS: ATTEND Obstetrics & Gynecology
DX: Z12.31 Encounter for screening mammogram for malignant neoplasm of breast (principal); R92.8 Other abnormal and inconclusive findings on diagnostic imaging of breast
CPT/HCPCS: 77067

== ENCOUNTER → 2019-10-26 | Outpatient (CLI) | payer BC ==
--- NOTE | 2019-10-26 08:27 | Diagnostic Imaging Report ---
Diagnostic right mammogram. Indication: Screening mammogram. The recent screening mammogram performed on 10/17/2019 noted a slightly nodular density in the lateral aspect of the right breast anterior depth. The compression views of this area showed this nodular density has a generally benign appearance. Even so, would recommend ultrasound be performed to better characterize this finding. Impression: Ultrasound would be recommended to better characterize the nodular density in the right breast. ACR BI-RADS Category 0: Incomplete. (Needs additional imaging evaluation). Result letter will be mailed to the patient. Note: At least 10% of breast cancer is not imaged by mammography. Dictated by: Dictated on workstation # [id number]
--- NOTE | 2019-10-26 09:42 | Diagnostic Imaging Report ---
EXAMINATION: Ultrasound right breast limited. INDICATION: Abnormal mammogram. FINDINGS: The diagnostic mammogram performed earlier today noted a small benign-appearing nodular density in the upper outer aspect of the right breast. On this exam, there is a 9 x 6 x 6 mm well-circumscribed avascular hypoechoic lesion with septations in the 9 o'clock position roughly 3 cm from the nipple. This may well correspond to the density seen on the mammogram. There is also a small lymph node in the upper outer aspect of the breast roughly 10 cm from the nipple. This also has a generally benign appearance as well. There is no solid mass to suggest malignancy. IMPRESSION: There is a small septated cyst in the 9 o'clock position of the right breast. This most likely corresponds to the density seen on the mammogram. There is no evidence for malignancy but I would recommend that a short-term (6 month) followup mammogram and ultrasound exam of the right breast be obtained for continued evaluation. ACR BI-RADS Category 3: Probably benign findings. Dictated by: Dictated on workstation # [id number]
== END ==
LOC: RAD 08:04
PROVIDERS: ATTEND Obstetrics & Gynecology
DX: N60.01 Solitary cyst of right breast (principal)

== ENCOUNTER → 2020-04-25 | Outpatient (CLI) | payer BC, OTHER ==
[~2020-04-25] MED LIST changes: -TRAM50TA2 PO; +TRM50T PO
--- NOTE | 2020-04-25 14:18 | Diagnostic Imaging Report ---
INDICATION: Right breast density. Patient presents for a 6 month followup. COMPARISON: Correlation is made with prior mammograms from 10/17/2019 and 11/12/2016. TECHNIQUE: Unilateral right 2D and 3D diagnostic mammography was performed with CAD. FINDINGS: Scattered fibroglandular densities in the right breast are noted. The density in the outer right breast at anterior depth is similar to perhaps slightly smaller when compared to the prior study. No new mass is seen. No malignant appearing microcalcifications are identified. The right axilla is unremarkable. IMPRESSION: Stable right mammogram when compared with the prior examination 6 months earlier. A right breast ultrasound is recommended to further evaluate the previously noted nodule and will be performed today. ACR BI-RADS Category 0: Incomplete. (Needs additional imaging evaluation). Result letter will be mailed to the patient. Note: At least 10% of breast cancer is not imaged by mammography. Dictated by: Dictated on workstation # [id number]
--- NOTE | 2020-04-25 15:38 | Diagnostic Imaging Report ---
INDICATION: Six-month followup of right breast nodule. COMPARISON: Correlation is made with the prior right breast ultrasound from 10/26/2019. FINDINGS: Sonographic interrogation of the 9 o'clock location of the right breast was performed. The previously noted nodule with septation is again noted with the cystic septated portion unchanged. There is an adjacent hypoechoic nodularity which also appears to be similar to the prior exam. In aggregate, the cystic nodule and hypoechoic adjacent nodule measures 18 mm x 5 mm x 6 mm. A lymph node at the 10 o'clock location is stable. No new abnormality is seen. IMPRESSION: Stable septated partially cystic nodule at the 9 o'clock location of the right breast 3 cm from the nipple when compared with the prior exam from 10/26/2019. An additional 6 month followup with mammogram and ultrasound would be recommended to show continued stability. ACR BI-RADS Category 3: Probably benign findings. Dictated by: Dictated on workstation # [id number]
== END ==
LOC: RAD 13:34
PROVIDERS: ATTEND Obstetrics & Gynecology
DX: N63.10 Unspecified lump in the right breast, unspecified quadrant (principal)

== ENCOUNTER 2021-04-22 13:01 | Outpatient (RCR) | payer OTHER ==
[~2021-04-22 13:01] MED LIST changes: +BUPR150T24 PO; -BUPR150T7 PO; -OXYC-465 PO; +OXYC-556 PO
== END 2021-05-31 13:22 | disposition home or self-care (01) ==
PROVIDERS: ATTEND Family Medicine
DX: M54.12 Radiculopathy, cervical region (principal); I10 Essential (primary) hypertension; Z98.890 Other specified postprocedural states; Z98.1 Arthrodesis status

== ENCOUNTER → 2022-12-18 | Outpatient (CLI) | payer OTHER ==
[~2022-12-18] MED LIST changes: +CYCL10TA25 PO; -CYCL10TA9 PO; +NORE5TAB PO; -NORE5TAB12 PO; +OMEP20TA56 PO; -OMEP20TA7 PO
[2022-12-18 11:36] LABS: ABSOLUTE RETIC # 114 10e9/uL (24-90); BASOPHILS # (AUTO) 0.1 10^3/uL (0.0-0.1); BASOPHILS % (AUTO) 1 % (0-10); EOSINOPHILS # (AUTO) 0.4 10^3/uL (0.0-0.3); EOSINOPHILS % (AUTO) 4 % (0-10); HEMATOCRIT 45 % (35-52); HEMOGLOBIN 14.9 g/dL (11.5-16.0); LYMPHOCYTES % (AUTO) 28 % (12-44); MEAN CORPUSCULAR HEMOGLOBIN 28 pg (25-34); MEAN CORPUSCULAR HGB CONC 33 g/dL (32-36); MEAN CORPUSCULAR VOLUME 84 fL (80-99); MEAN PLATELET VOLUME 9.3 fL (9.0-12.2); MONOCYTES # (AUTO) 0.8 10^3/uL (0.0-1.0); MONOCYTES % (AUTO) 7 % (0-12); NEUTROPHILS # (AUTO) 6.6 10^3/uL (1.8-7.8); NEUTROPHILS % (AUTO) 60 % (42-75); PLATELET COUNT 399 10^3/uL (130-400); RETICULOCYTE % 2.11 % (0.50-2.40)
[2022-12-18 11:53] LABS: ANISOCYTOSIS SLIGHT; BAND NEUTROPHILS 1 %; EOSINOPHILS % (MANUAL) 4 %; LYMPHOCYTES % (MANUAL) 28 %; MONOCYTES % (MANUAL) 7 %; NEUTROPHILS % (MANUAL) 58 %; REACTIVE LYMPHOCYTES 2 %
== END ==
LOC: LAB 11:04
PROVIDERS: ATTEND Family Medicine
DX: D72.829 Elevated white blood cell count, unspecified (principal); R79.9 Abnormal finding of blood chemistry, unspecified
CPT/HCPCS: 36415; 85007; 85027; 85045; 85055